=== PATIENT | female | born 1970 | race Native Hawaiian/Other Pacific Islander ===

== ENCOUNTER → 2020-05-18 | Outpatient (CLI) | payer BC, OTHER | LOC: INF 17:23 | PROVIDERS: ATTEND Internal Medicine | DX: Z23 Encounter for immunization (principal) | CPT/HCPCS: 96372 ==

== ENCOUNTER 2020-06-11 08:15 | Outpatient (CLI) | payer BC, OTHER | END 2020-06-11 23:59 | disposition home or self-care (01) | LOC: INF 08:15 | PROVIDERS: ATTEND Internal Medicine | DX: Z23 Encounter for immunization (principal) | CPT/HCPCS: 96372 ==